=== PATIENT | female | born 1935 | race Caucasian/White ===

== ENCOUNTER 2017-07-16 15:55 | Emergency (ER) | payer MEDICARE, BC ==
[2017-07-16 16:19] VITALS: BP 133/63
[2017-07-16] MEDS ORDERED: HYDROmorphone 0.5 MG/0.5 ML Syringe IM ONE (17:06)
--- NOTE | 2017-07-16 17:07 | EDM.PDOC ---
ED HPI GENERAL MEDICAL PROBLEM - General Chief Complaint: Back Pain or Injury Stated Complaint: PCP CONCERNED ABOUT BLOOD CLOT Time Seen by Provider: 07/16/17 16:51 Source of Information: Reports: Patient History Limitations: Reports: No Limitations - History of Present Illness INITIAL COMMENTS - FREE TEXT/NARRATIVE: Patient is a 81-year-old female who presents to the ED complaining of left sided thoracic back pain. Patient states approximately 2 weeks ago she was getting up out of her chair and while pushing up she coughed and felt a pop to this location. She was seen by Zoila Valdovinos her primary care provider in the clinic. She was instructed to continue taking hydrocodone and Tylenol as needed. Patient states she's had no significant improvements over the past 2 weeks. She stopped taking the Tylenol 4 days ago. She contacted her primary care provider and was instructed to come to the ED for further evaluation. Pain is localized with no radiation. Worsened with taking a deep breath, coughing, and palpation. Denies any chest pain, shortness of breath, nausea/vomiting, dizziness, pain/sensory changes to his lower extremities or abdominal pain. Back Pain Score (Numeric/FACES): 8 - Related Data Allergies Allergy/AdvReac Type Severity Reaction Status Date / Time Penicillins Allergy Rash Verified 07/16/17 17:04 Sulfa (Sulfonamide Allergy Rash Verified 07/16/17 17:04 Antibiotics) tetracycline [Tetracycline] Allergy Rash Verified 07/16/17 17:04 erythromycin base AdvReac Diarrhea Verified 07/16/17 17:04 [Erythromycin Base] Home Meds: Home Meds Amitriptyline [Elavil] 25 mg PO BEDTIME 11/29/13 [History] Levothyroxine 112 mcg PO DAILY 11/29/13 [History] Magnesium Oxide 250 mg PO DAILY 11/29/13 [History] Meloxicam [Mobic] 7.5 mg PO DAILY 11/29/13 [History] Pravastatin [Pravachol] 20 mg PO DAILY 11/29/13 [History] traMADol [Ultram] 50 mg PO TID 11/29/13 [History] Alendronate Sodium [Alendronate] 70 mg PO WEEKLY 07/21/16 [History] Furosemide [Furosemide] 20 mg PO WITHLUNCH 07/21/16 [History] Furosemide [Furosemide] 40 mg PO QAM 07/21/16 [History] Gabapentin [Gabapentin] 1,200 mg PO BID 07/21/16 [History] Lisinopril [Prinivil] 2.5 mg PO DAILY 07/21/16 [History] Lutein/Min/Vit C/Vit E Acetate [Ocuvite Lutein] 1 tab PO DAILY 07/21/16 [History ] Nitrofurantoin [place]/Macrocryst [Macrobid] 100 mg PO BID #9 cap 07/21/16 [Rx] Ubidecarenone [Co Q-10] 100 mg PO DAILY 07/21/16 [History] Acetaminophen/HYDROcodone [[place] 325-5 MG] 1 tab PO Q6H PRN #12 tablet 07/16/17 [Rx] Past Medical History HEENT History: Reports: Impaired Vision Cardiovascular History: Reports: Other (See Below) Other Cardiovascular History: swelling to bilateral legs - takes lasix Endocrine/Metabolic History: Reports: Diabetes, Type II - Past Surgical History HEENT Surgical History: Reports: Tonsillectomy Social & Family History - Family History Endocrine/Metabolic: Reports: Diabetes, type II Oncologic: Reports: Colon - Tobacco Use Smoking Status *Q: Former Smoker Years of Tobacco use: 15 Packs/Tins Daily: 0.5 - Caffeine Use Caffeine Use: Reports: Coffee - Recreational Drug Use Recreational Drug Use: No ED ROS GENERAL - Review of Systems Review Of Systems: ROS reveals no pertinent complaints other than HPI. ED EXAM, UPPER BACK/NECK PAIN - Physical Exam Exam: See Below Exam Limited By: No Limitations General Appearance: Alert, WD/WN, Mild Distress Ears Exam: Hearing Grossly Normal Nose Exam: Normal Inspection Throat/Mouth Exam: Normal Voice, No Airway Compromise Head Exam: Atraumatic, Normocephalic Neck Exam: Non-Tender, Full Range of Motion, Normal Alignment, Normal Inspection Cardiovascular/Respiratory: Regular Rate, Rhythm, No M/R/G, Normal Peripheral Pulses, No JVD, No Respiratory Distress GI/Abdominal: Normal Bowel Sounds, Soft, Non-Tender, No Organomegaly, No Distention Back Exam: Normal Inspection, Paraspinal Tenderness (Pain noted to the mid thoracic just left of the spine along where a rib head is potentially out of place. Pinpoint tenderness noted on palpation. No swelling, rash, bruising, bony abdomen abnormalities noted.), Other. No: Vertebral Tenderness Extremities: Normal Inspection, Normal Range of Motion, Non-Tender, No Pedal Edema, Normal Capillary Refill Neurologic: director of engineering II-XII nml As Tested, No Motor/Sensory Deficits, Alert, Normal Mood/Affect, Oriented x 3 Psychiatric: Normal Affect, Normal Mood Skin Exam: Normal Color, Warm/Dry Course - Vital Signs Last Recorded V/S: Last Vital Signs Temp 98.6 F 07/16/17 16:15 Pulse 89 07/16/17 16:15 Resp 24 H 07/16/17 16:15 BP 133/63 07/16/17 16:15 Pulse Ox 92 L 07/16/17 16:15 - Orders/Labs/Meds Orders: Active Orders 24 hr Category Date Time Status Chest 1V Frontal [CR] Stat Exams 07/16/17 17:06 Taken Thoracic Spine 2V [CR] Stat Exams 07/16/17 17:06 Taken Meds: Medications Discontinued Medications Generic Name Dose Route Start Last Admin Trade Name Freq PRN Reason Stop Dose Admin Hydromorphone HCl 0.5 mg 07/16/17 17:06 07/16/17 17:52 Dilaudid IM 07/16/17 17:07 0.5 mg ONETIME ONE Administration - Re-Assessments/Exams Free Text/Narrative Re-Assessment/Exam: Ordered x-ray of the chest as well as thoracic spine. Ordered Dilaudid 0.5 mg IM. Reviewed cxr and x-ray of the thoracic spine with Dr. Carrero.Patient has pretty severe scoliosis with what appears to be a rib head out on the left side. 07/16/17 19:05 Reassessment, patient is feeling much better after the diluted therapy. Will discharge home with instructions as documented. Departure - Departure Time of Disposition: 19:19 Disposition: Home, Self-Care 01 Condition: Good Clinical Impression: Left-sided thoracic back pain Qualifiers: Chronicity: acute Qualified Code(s): M54.6 - Pain in thoracic spine - Discharge Information Prescriptions: Acetaminophen/HYDROcodone [[place] 325-5 MG] 1 tab PO Q6H PRN #12 tablet PRN Reason: Pain (Severe 7-10) Instructions: Thoracic Strain, [id number] Referrals: Zoila Valdovinos STUDY SPECIALIST [Primary Care Provider] - Forms: ED Department Discharge Additional Instructions: As discussed due to her severe scoliosis it appears that you have a rib head out on the left side of the upper back. This is adjacent to her ear pain is located. Treatment will be [place] one tab every 6 hours as needed for severe pain. Suggest utilizing ice and warm compresses to the affected area. Physical therapy will be ordered for outpatient treatment. Chiropractor may be able to help with her current discomfort. Follow-up with your primary care provider for future pain management and reevaluation. Return to the ED as needed for any new or worsening pain. No driving while taking the [place] and this evening since receiving a sedative medication. - My Orders Last 24 Hours: My Active Orders 07/16/17 17:06 Chest 1V Frontal [CR] Stat Thoracic Spine 2V [CR] Stat - Assessment/Plan Last 24 Hours: My Active Orders 07/16/17 17:06 Chest 1V Frontal [CR] Stat Thoracic Spine 2V [CR] Stat
--- NOTE | 2017-07-17 07:07 | CR ---
Thoracic spine: AP, lateral and swimmer's views of the thoracic spine were obtained. Mild anterior compression deformity is seen within the upper thoracic spine. This involves approximately the fifth rib vertebral body. Scattered disc space narrowing is seen. Scattered endplate osteophytes are seen. Scoliosis is present within the spine as well as upper thoracic kyphosis. Impression: 1. Compression deformity within the upper thoracic spine which is not seen on prior chest x-ray of 07/21/16 and has occurred in the interim. Age is otherwise nonspecific. 2. Degenerative change and scoliosis is seen. Diagnostic code #3
--- NOTE | 2017-07-17 07:07 | CR ---
Chest: Frontal view of the chest was obtained. Comparison: Prior chest x-ray of 05/06/16. Slight nodular density is seen within the left base. Lungs otherwise are clear. Heart size is normal. Tortuous thoracic aorta is seen. Scoliosis and degenerative change is seen within the spine. Impression: 1. Questionable nodule within the left lung base. Noncontrast chest CT recommended at sometime in the future to rule out nodule. 2. Other incidental findings. Nothing acute is appreciated. Diagnostic code #9
== END 2017-07-16 19:30 | disposition home or self-care (01) ==
LOC: JD.ED 15:55
DX: M54.6 Pain in thoracic spine (principal); E11.9 Type 2 diabetes mellitus without complications; Z88.0 Allergy status to penicillin; Z88.2 Allergy status to sulfonamides; Z88.1 Allergy status to other antibiotic agents; Z79.899 Other long term (current) drug therapy; Z87.891 Personal history of nicotine dependence
CPT/HCPCS: 71010; 72070; 96372; 99283; J1170

== ENCOUNTER 2019-05-23 12:08 | Emergency (ER) | payer MEDICARE, BC ==
[2019-05-23 12:26] VITALS: PULSE 104
[2019-05-23 12:32] VITALS: BP 108/68
[2019-05-23] MEDS ORDERED: Albuterol/Ipratropium 3.0-0.5 MG/3 ML Neb Soln NEB ONE (12:46)
--- NOTE | 2019-05-23 13:11 | EDM.PDOC ---
ED HPI GENERAL MEDICAL PROBLEM - General Chief Complaint: Respiratory Problem Stated Complaint: SOB Time Seen by Provider: 05/23/19 12:21 Source of Information: Reports: Patient History Limitations: Reports: No Limitations - History of Present Illness INITIAL COMMENTS - FREE TEXT/NARRATIVE: The patient presents with wheezing and shortness of breath. This has been going on for about 6 months. She did see an ENT doctor and he put her on an antibiotic. It did help some but she is wheezing again and has congestion She has lots of allergies. She has no chest pain, abdominal pain, nausea or vomiting. Onset: Gradual Duration: Week(s): Severity: Moderate Improves with: Reports: None Worsens with: Reports: None Associated Symptoms: Reports: Cough, Shortness of Breath. Denies: Chest Pain, Fever/Chills, Nausea/Vomiting - Related Data Allergies Allergy/AdvReac Type Severity Reaction Status Date / Time Penicillins Allergy Rash Verified 05/23/19 12:26 Sulfa (Sulfonamide Allergy Rash Verified 05/23/19 12:26 Antibiotics) tetracycline [Tetracycline] Allergy Rash Verified 05/23/19 12:26 erythromycin base AdvReac Diarrhea Verified 05/23/19 12:26 [Erythromycin Base] Home Meds: Home Meds Amitriptyline [Elavil] 25 mg PO BEDTIME 11/29/13 [History] Levothyroxine 112 mcg PO DAILY 11/29/13 [History] Magnesium Oxide 250 mg PO DAILY 11/29/13 [History] Meloxicam [Mobic] 7.5 mg PO DAILY 11/29/13 [History] Pravastatin [Pravachol] 20 mg PO DAILY 11/29/13 [History] traMADol [Ultram] 50 mg PO TID 11/29/13 [History] Alendronate Sodium [Alendronate] 70 mg PO WEEKLY 07/21/16 [History] Furosemide 20 mg PO WITHLUNCH 07/21/16 [History] Furosemide 40 mg PO QAM 07/21/16 [History] Gabapentin 1,200 mg PO BID 07/21/16 [History] Lisinopril [Prinivil] 2.5 mg PO DAILY 07/21/16 [History] Lutein/Min/Vit C/Vit E Acetate [Ocuvite Lutein] 1 tab PO DAILY 07/21/16 [History ] Nitrofurantoin [place]/Macrocryst [Macrobid] 100 mg PO BID #9 cap 07/21/16 [Rx] Ubidecarenone [Co Q-10] 100 mg PO DAILY 07/21/16 [History] Acetaminophen/HYDROcodone [[place] 325-5 MG] 1 tab PO Q6H PRN #12 tablet 07/16/17 [Rx] predniSONE [Prednisone] 20 mg PO DAILY #5 tablet 05/23/19 [Rx] Past Medical History HEENT History: Reports: Impaired Vision Cardiovascular History: Reports: Other (See Below) Other Cardiovascular History: swelling to bilateral legs - takes lasix Endocrine/Metabolic History: Reports: Diabetes, Type II - Past Surgical History HEENT Surgical History: Reports: Tonsillectomy Social & Family History - Family History Endocrine/Metabolic: Reports: Diabetes, type II Oncologic: Reports: Colon - Tobacco Use Smoking Status *Q: Former Smoker Used Tobacco, but Quit: Yes Month/Year Tobacco Last Used: 1989 - Caffeine Use Caffeine Use: Reports: Coffee ED ROS GENERAL - Review of Systems Review Of Systems: See Below Constitutional: Reports: No Symptoms HEENT: Reports: No Symptoms Respiratory: Reports: Shortness of Breath, Wheezing, Cough Cardiovascular: Reports: No Symptoms Endocrine: Reports: No Symptoms GI/Abdominal: Reports: No Symptoms : Reports: No Symptoms ED EXAM, GENERAL - Physical Exam Exam: See Below Exam Limited By: No Limitations General Appearance: Alert, No Apparent Distress Ears: Normal External Exam Nose: Normal Inspection Head: Atraumatic, Normocephalic Neck: Normal Inspection Respiratory/Chest: No Respiratory Distress, Wheezing Cardiovascular: Regular Rate, Rhythm, No Edema, No Murmur GI/Abdominal: Soft, Non-Tender, No Organomegaly, No Mass Back Exam: Normal Inspection Extremities: Normal Inspection Course - Vital Signs Last Recorded V/S: Last Vital Signs Temp 97.6 F 05/23/19 12:21 Pulse 104 H 05/23/19 12:21 Resp 22 H 05/23/19 12:21 BP 108/68 05/23/19 12:31 Pulse Ox 93 L 05/23/19 12:46 - Orders/Labs/Meds Orders: Active Orders 24 hr Category Date Time Status Cardiac Monitoring [RC] . DIRECTED Care 05/23/19 12:46 Active RT Aerosol Therapy [RC] ASDIRECTED Care 05/23/19 12:46 Active RT Post Treatment Assessment [RC] Click to Edit Care 05/23/19 15:18 Ordered RT Pre-Treatment Assessment [RC] Click to Edit Care 05/23/19 15:18 Ordered Albuterol [Proventil HFA] Med 05/23/19 15:18 Once See Dose Instructions INH ONETIME ONE predniSONE Med 05/23/19 15:18 Once 20 mg PO ONETIME ONE Labs: Laboratory Tests 05/23/19 05/23/19 Range/Units 13:17 13:17 WBC 9.03 (3.98-10.04) K/mm3 RBC 4.22 (3.98-5.22) M/mm3 Hgb 13.3 (11.2-15.7) gm/dl Hct 40.5 (34.1-44.9) % MCV 96.0 H (79.4-94.8) fl MCH 31.5 (25.6-32.2) pg MCHC 32.8 (32.2-35.5) g/dl RDW Std Deviation 43.1 (36.4-46.3) fL Plt Count 330 (182-369) K/mm3 MPV 8.7 L (9.4-12.3) fl Neut % (Auto) 51.3 (34.0-71.1) % Lymph % (Auto) 31.5 (19.3-51.7) % [place] % (Auto) 10.9 (4.7-12.5) % Eos % (Auto) 5.3 (0.7-5.8) Baso % (Auto) 0.7 (0.1-1.2) % Neut # (Auto) 4.64 (1.56-6.13) K/mm3 Lymph # (Auto) 2.84 (1.18-3.74) K/mm3 [place] # (Auto) 0.98 H (0.24-0.36) K/mm3 Eos # (Auto) 0.48 H (0.04-0.36) K/mm3 Baso # (Auto) 0.06 (0.01-0.08) K/mm3 Sodium 136 (136-145) mEq/L Potassium 3.9 (3.5-5.1) mEq/L Chloride 98 (98-107) mEq/L Carbon Dioxide 28 (21-32) mEq/L Anion Gap 13.9 (5-15) BUN 12 (7-18) mg/dL Creatinine 1.0 (0.55-1.02) mg/dL Est Cr Clr Drug Dosing 32.73 mL/min Estimated GFR (MDRD) 53 (>60) mL/min BUN/Creatinine Ratio 12.0 L (14-18) Glucose 110 (83-115) mg/dL Calcium 9.0 (8.5-10.1) mg/dL Total Bilirubin 0.2 (0.2-1.0) mg/dL AST 19 (15-37) U/L ALT 12 L (14-59) U/L Alkaline Phosphatase 76 (46-116) U/L Total Protein 7.2 (6.4-8.2) g/dl Albumin 3.6 (3.4-5.0) g/dl Globulin 3.6 gm/dL Albumin/Globulin Ratio 1.0 (1-2) Meds: Medications Discontinued Medications Generic Name Dose Route Start Last Admin Trade Name Freq PRN Reason Stop Dose Admin Albuterol/Ipratropium 3 ml 05/23/19 12:46 05/23/19 12:53 Duoneb 3.0-0.5 Mg/3 Ml NEB 05/23/19 12:47 3 ml ONETIME ONE Administration - Re-Assessments/Exams Free Text/Narrative Re-Assessment/Exam: 05/23/19 15:21 Her labs look good. Her CXR shows no infiltrates. Her breathing is better after the duoneb. I feel she may have some underlying ashtma or COPD. I will get her on a steroid for 5 days and an albuterol inhaler. Departure - Departure Time of Disposition: 15:25 Disposition: Home, Self-Care 01 Condition: Good Clinical Impression: Reactive airway disease Qualifiers: Asthma severity: mild intermittent Asthma complication type: with acute exacerbation Qualified Code(s): J45.21 - Mild intermittent asthma with (acute) exacerbation - Discharge Information *PRESCRIPTION DRUG MONITORING PROGRAM REVIEWED*: No *COPY OF PRESCRIPTION DRUG MONITORING REPORT IN PATIENT SE: No Prescriptions: predniSONE [Prednisone] 20 mg PO DAILY #5 tablet Referrals: Zoila Valdovinos SPECIALTY MOLDER [Primary Care Provider] - 2 Weeks Forms: ED Department Discharge Additional Instructions: Take the prednisone daily for 5 days. Use the inhaler 2 puffs every 6 hours as needed for wheezing or shortness of breath. Follow up with Zoila Valdovinos or one of her partners. Please return if you are worse. - My Orders Last 24 Hours: My Active Orders 05/23/19 12:46 Cardiac Monitoring [RC] . DIRECTED RT Aerosol Therapy [RC] ASDIRECTED 05/23/19 15:18 RT Post Treatment Assessment [RC] Click to Edit RT Pre-Treatment Assessment [RC] Click to Edit Albuterol [Proventil HFA] See Dose Instructions INH ONETIME ONE predniSONE 20 mg PO ONETIME ONE - Assessment/Plan Last 24 Hours: My Active Orders 05/23/19 12:46 Cardiac Monitoring [RC] . DIRECTED RT Aerosol Therapy [RC] ASDIRECTED 05/23/19 15:18 RT Post Treatment Assessment [RC] Click to Edit RT Pre-Treatment Assessment [RC] Click to Edit Albuterol [Proventil HFA] See Dose Instructions INH ONETIME ONE predniSONE 20 mg PO ONETIME ONE
--- NOTE | 2019-05-23 13:29 | CR ---
Chest: PA and lateral views of the chest were obtained. Comparison: Prior chest x-ray of 07/16/[address] of 07/24/17. Scoliosis is noted within the spine which is stable. Degenerative change is also scattered within the spine. Heart size is normal. Upper mediastinum is within normal limits. Lungs are clear with no acute parenchymal change. Impression: 1. Findings as noted above. Nothing acute is appreciated on 2 view chest x-ray. Diagnostic code #2
[2019-05-23] MEDS ORDERED: Albuterol 6.7 GM Inhaler INH ONE (15:18)
[2019-05-23] MEDS ORDERED: predniSONE 20 MG Tab PO ONE (15:18)
== END 2019-05-23 15:42 | disposition home or self-care (01) ==
LOC: JD.ED 12:08
DX: J45.21 Mild intermittent asthma with (acute) exacerbation (principal); E11.9 Type 2 diabetes mellitus without complications; Z88.0 Allergy status to penicillin; Z88.1 Allergy status to other antibiotic agents; Z88.2 Allergy status to sulfonamides; Z87.891 Personal history of nicotine dependence
CPT/HCPCS: 36415; 71046; 80053; 85025; 94640; 99285; A9270; 99283; J7620-GY

== ENCOUNTER 2020-11-25 13:45 | Emergency (ER) | payer MEDICARE, BC ==
[2020-11-25 14:06] VITALS: BP 92/60; PULSE 101
[2020-11-25] MEDS ORDERED: Sodium Chloride 0.9% 10 ML Syringe FLUSH PRN (14:19)
--- NOTE | 2020-11-25 14:22 | EDM.PDOC ---
ED HPI GENERAL MEDICAL PROBLEM - General Chief Complaint: Neuro Symptoms/Deficits Stated Complaint: DIORIENTATED Time Seen by Provider: 11/25/20 14:05 Source of Information: Reports: Patient, Family History Limitations: Reports: No Limitations - History of Present Illness INITIAL COMMENTS - FREE TEXT/NARRATIVE: The patient presents with her son and for confusion. The patient says she feels good and does not have any memory issues. He says that is not true. This morning they were praying and she could not turn to the right page. She usually watches [employer] and she has just been staring at [employer]. She was on steroids for her ear. That was stopped last week. This week she saw her case resource manager in [place] and her blood pressure was low in the 80s and she was supposed to see Zoila Valdovinos in [place] this week. She could not get in but Zoila did call her and wanted her to come in and have a CT scan done and other work up done. This has been going on for a few days. Onset: Gradual Duration: Day(s): Severity: Moderate Improves with: Reports: None Worsens with: Reports: None Associated Symptoms: Reports: No Other Symptoms - Related Data Allergies Allergy/AdvReac Type Severity Reaction Status Date / Time Penicillins Allergy Rash Verified 06/21/19 00:48 Sulfa (Sulfonamide Allergy Rash Verified 06/21/19 00:48 Antibiotics) tetracycline [Tetracycline] Allergy Rash Verified 06/21/19 00:48 erythromycin base AdvReac Diarrhea Verified 06/21/19 00:48 [Erythromycin Base] Home Meds: Home Meds Amitriptyline [Elavil] 12.5 mg PO BEDTIME 06/20/19 [History] Baclofen 10 mg PO TID PRN 06/20/19 [History] Calcium Carbonate [Calcium] 600 mg PO BID 06/20/19 [History] Cholecalciferol (Vitamin D3) [Vitamin D3] 1,000 unit PO DAILY 06/20/19 [History] Clotrimazole [Clotrimazole 1%] 1 applic TOP BID PRN 06/20/19 [History] Furosemide 40 mg PO DAILY 06/20/19 [History] Gabapentin [Neurontin] 600 mg PO BID 06/20/19 [History] Glucosam/Zhou-Col.Cplx/D3/C/Mn [Sbrmikmrpja-Junlbtispfv-Q5] 1 tab PO DAILY 06/20/19 [History] Levothyroxine 112 mcg PO ACBREAKFAST 06/20/19 [History] Meloxicam [Mobic] 7.5 mg PO BID 06/20/19 [History] Multivitamin with Minerals [Multivitamins with Minerals] 1 tab PO DAILY 06/20/19 [History] Pravastatin [Pravachol] 20 mg PO BEDTIME 06/20/19 [History] lisinopriL [Zestril] 2.5 mg PO DAILY 06/20/19 [History] metFORMIN [Glucophage] 500 mg PO BID 06/20/19 [History] traMADol [Ultram] 50 mg PO BEDTIME 06/20/19 [History] Albuterol [Proventil HFA] 2 puff INH Q4H PRN 06/21/19 [History] Docusate Sodium [Stool Softener] 50 mg PO DAILY 06/21/19 [History] Fluticasone Propionate [Flonase] 2 sprays NS DAILY 06/21/19 [History] Benzonatate [Tessalon Perle] 100 mg PO TID PRN #20 capsule 06/25/19 [Rx] Budesonide [Pulmicort] 0.5 mg IH BID #10 neb 06/25/19 [Rx] Dextromethorphan/guaiFENesin [Robitussin DM] 10 ml PO TID PRN #2 cup 06/25/19 [Rx] levalbuterol HCL [Xopenex] 1.25 mg NEB Q8HR #12 neb 06/25/19 [Rx] levoFLOXacin [Levaquin] 750 mg PO Q48H #1 tablet 06/25/19 [Rx] methylPREDNISolone [Medrol] 4 mg PO ASDIRECTED #1 dosepk 06/25/19 [Rx] Past Medical History HEENT History: Reports: Impaired Vision Other HEENT History: Glasses Cardiovascular History: Reports: High Cholesterol, Hypertension, Other (See Below) Other Cardiovascular History: swelling to bilateral legs - takes lasix Respiratory History: Reports: Bronchitis, Recurrent Other Respiratory History: It has been suggested to her in this last couple months that she should see a case resource manager to evaluate her for asthma or COPD but nothing has been set up yet. Musculoskeletal History: Reports: Arthritis, Back Pain, Chronic, Other (See Below) Other Musculoskeletal History: scoliosis Neurological History: Reports: None Psychiatric History: Reports: Depression Other Psychiatric History: in the past needed to take pill for depression but doesn't anymore. Endocrine/Metabolic History: Reports: Diabetes, Type II, Hypothyroidism, Obesity/BMI 30+ Hematologic History: Reports: None Dermatologic History: Reports: None - Infectious Disease History Infectious Disease History: Reports: None, Chicken Pox, Influenza, Measles - Past Surgical History HEENT Surgical History: Reports: Cataract Surgery, Tonsillectomy Musculoskeletal Surgical History: Reports: Knee Replacement Other Musculoskeletal Surgeries/Procedures:: bilateral Social & Family History - Family History Endocrine/Metabolic: Reports: Diabetes, type II Oncologic: Reports: Colon - Caffeine Use Caffeine Use: Reports: Coffee Other Caffeine Use: a couple times a day ED ROS GENERAL - Review of Systems Review Of Systems: See Below Constitutional: Reports: No Symptoms HEENT: Reports: No Symptoms Respiratory: Reports: No Symptoms Cardiovascular: Reports: No Symptoms Endocrine: Reports: No Symptoms GI/Abdominal: Reports: No Symptoms : Reports: No Symptoms Musculoskeletal: Reports: No Symptoms ED EXAM, NEURO - Physical Exam Exam: See Below Exam Limited By: No Limitations General Appearance: Alert, No Apparent Distress Ears: Normal External Exam Nose: Normal Inspection Head Exam: Atraumatic, Normocephalic Neck: Normal Inspection Respiratory/Chest: No Respiratory Distress, Lungs Clear, Normal Breath Sounds Cardiovascular: Regular Rate, Rhythm, No Edema, No Murmur GI/Abdominal: Soft, Non-Tender, No Organomegaly, No Mass Neurological: Alert, No Motor/Sensory Deficits, Oriented x 3 #1 Interpretation EKG Date: 11/25/20 Time: 14:32 Rhythm: Other (Sinus tachycardia) Rate (Beats/Min): 102 [place]: Normal P-Wave: Present QRS: Normal ST-T: Normal QT: Normal Course - Vital Signs Last Recorded V/S: Last Vital Signs Temp 98.2 F 11/25/20 14:03 Pulse 101 H 11/25/20 14:03 Resp 18 11/25/20 14:03 BP 92/60 11/25/20 14:03 Pulse Ox 93 L 11/25/20 14:03 - Orders/Labs/Meds Orders: Active Orders 24 hr Category Date Time Status Cardiac Monitoring [RC] . DIRECTED Care 11/25/20 14:19 Active EKG Documentation Completion [RC] STAT Care 11/25/20 14:20 Active Peripheral IV Care [RC] . DIRECTED Care 11/25/20 14:20 Active Ang Chest [CT] Stat Exams 11/25/20 15:56 Taken Chest 1V Frontal [CR] Stat Exams 11/25/20 14:20 Taken Head wo Cont [CT] Stat Exams 11/25/20 15:16 Taken Venous Doppler Lwr Ext Bi [US] Stat Exams 11/25/20 15:55 Taken Sodium Chloride 0.9% [Normal Saline] 1,000 ml Med 11/25/20 16:00 Active IV ASDIRECTED Sodium Chloride 0.9% [Saline Flush] Med 11/25/20 14:19 Active 10 ml FLUSH ASDIRECTED PRN Peripheral IV Insertion Adult [OM.PC] Stat Oth 11/25/20 14:19 Ordered Medication Orders Sodium Chloride (Normal Saline) 1,000 mls @ 150 mls/hr IV ASDIRECTED HILDA Last Admin: 11/25/20 16:18 Dose: 150 mls/hr Documented by: OLY Sodium Chloride (Sodium Chloride 0.9% 10 Ml Syringe) 10 ml FLUSH ASDIRECTED PRN PRN Reason: Keep Vein Open Last Admin: 11/25/20 16:18 Dose: 10 ml Documented by: OLY Labs: Laboratory Tests 11/25/20 11/25/20 11/25/20 Range/Units 14:50 14:50 14:50 WBC 5.92 (3.98-10.04) K/mm3 RBC 3.15 L (3.98-5.22) M/mm3 Hgb 10.1 L D (11.2-15.7) gm/dl Hct 31.4 L (34.1-44.9) % MCV 99.7 H (79.4-94.8) fl MCH 32.1 (25.6-32.2) pg MCHC 32.2 (32.2-35.5) g/dl RDW Std Deviation 48.9 H (36.4-46.3) fL Plt Count 306 (182-369) K/mm3 MPV 8.6 L (9.4-12.3) fl Neut % (Auto) 66.4 (34.0-71.1) % Lymph % (Auto) 23.3 (19.3-51.7) % [place] % (Auto) 9.5 (4.7-12.5) % Eos % (Auto) 0 L (0.7-5.8) Baso % (Auto) 0.5 (0.1-1.2) % Neut # (Auto) 3.93 (1.56-6.13) K/mm3 Lymph # (Auto) 1.38 (1.18-3.74) K/mm3 Avery # (Auto) 0.56 H (0.24-0.36) K/mm3 Eos # (Auto) 0.00 L (0.04-0.36) K/mm3 Baso # (Auto) 0.03 (0.01-0.08) K/mm3 D-Dimer, Quantitative 3.81 H (0.19-0.50) mg/L Sodium 141 (136-145) mEq/L Potassium 3.6 (3.5-5.1) mEq/L Chloride 100 (98-107) mEq/L Carbon Dioxide 30 (21-32) mEq/L Anion Gap 14.6 (5-15) BUN 17 (7-18) mg/dL Creatinine 1.3 H (0.55-1.02) mg/dL Est Cr Clr Drug Dosing TNP Estimated GFR (MDRD) 39 (>60) mL/min BUN/Creatinine Ratio 13.1 L (14-18) Glucose 93 (83-115) mg/dL Calcium 9.7 (8.5-10.1) mg/dL Magnesium 1.4 L (1.8-2.4) mg/dl Total Bilirubin 0.4 (0.2-1.0) mg/dL AST 16 (15-37) U/L ALT 22 (14-59) U/L Alkaline Phosphatase 54 (46-116) U/L Troponin I < 0.017 (0.00-0.056) ng/mL Total Protein 6.7 (6.4-8.2) g/dl Albumin 2.8 L (3.4-5.0) g/dl Globulin 3.9 gm/dL Albumin/Globulin Ratio 0.7 L (1-2) Urine Color (Yellow) Urine Appearance (Clear) Urine pH (5.0-8.0) Ur Specific [place] (1.005-1.030) Urine Protein (Negative) Urine Glucose (UA) (Negative) Urine Ketones (Negative) Urine Occult Blood (Negative) Urine Nitrite (Negative) Urine Bilirubin (Negative) Urine Urobilinogen (0.2-1.0) Ur Leukocyte Esterase (Negative) Urine RBC (0-5) /hpf Urine WBC (0-5) /hpf Ur Squamous Epith Cells (0-5) /hpf Urine Bacteria (FEW) /hpf Urine Mucus (FEW) /hpf 11/25/20 Range/Units 15:07 WBC (3.98-10.04) K/mm3 RBC (3.98-5.22) M/mm3 Hgb (11.2-15.7) gm/dl Hct (34.1-44.9) % MCV (79.4-94.8) fl MCH (25.6-32.2) pg MCHC (32.2-35.5) g/dl RDW Std Deviation (36.4-46.3) fL Plt Count (182-369) K/mm3 MPV (9.4-12.3) fl Neut % (Auto) (34.0-71.1) % Lymph % (Auto) (19.3-51.7) % [place] % (Auto) (4.7-12.5) % Eos % (Auto) (0.7-5.8) Baso % (Auto) (0.1-1.2) % Neut # (Auto) (1.56-6.13) K/mm3 Lymph # (Auto) (1.18-3.74) K/mm3 [place] # (Auto) (0.24-0.36) K/mm3 Eos # (Auto) (0.04-0.36) K/mm3 Baso # (Auto) (0.01-0.08) K/mm3 D-Dimer, Quantitative (0.19-0.50) mg/L Sodium (136-145) mEq/L Potassium (3.5-5.1) mEq/L Chloride (98-107) mEq/L Carbon Dioxide (21-32) mEq/L Anion Gap (5-15) BUN (7-18) mg/dL Creatinine (0.55-1.02) mg/dL Est Cr Clr Drug Dosing Estimated GFR (MDRD) (>60) mL/min BUN/Creatinine Ratio (14-18) Glucose (83-115) mg/dL Calcium (8.5-10.1) mg/dL Magnesium (1.8-2.4) mg/dl Total Bilirubin (0.2-1.0) mg/dL AST (15-37) U/L ALT (14-59) U/L Alkaline Phosphatase (46-116) U/L Troponin I (0.00-0.056) ng/mL Total Protein (6.4-8.2) g/dl Albumin (3.4-5.0) g/dl Globulin gm/dL Albumin/Globulin Ratio (1-2) Urine Color Yellow (Yellow) Urine Appearance Clear (Clear) Urine pH 6.5 (5.0-8.0) Ur Specific [place] 1.015 (1.005-1.030) Urine Protein Negative (Negative) Urine Glucose (UA) Negative (Negative) Urine Ketones Negative (Negative) Urine Occult Blood Negative (Negative) Urine Nitrite Negative (Negative) Urine Bilirubin Negative (Negative) Urine Urobilinogen 0.2 (0.2-1.0) Ur Leukocyte Esterase Negative (Negative) Urine RBC 0-5 (0-5) /hpf Urine WBC 0-5 (0-5) /hpf Ur Squamous Epith Cells 0-5 (0-5) /hpf Urine Bacteria Few (FEW) /hpf Urine Mucus Few (FEW) /hpf Meds: Medications Generic Name Dose Route Start Last Admin Trade Name Ajq PRN Reason Stop Dose Admin Sodium Chloride 1,000 mls @ 150 mls/hr 11/25/20 16:00 11/25/20 16:18 Normal Saline IV 150 mls/hr ASDIRECTED HILDA Administration Sodium Chloride 10 ml 11/25/20 14:19 11/25/20 16:18 Sodium Chloride 0.9% 10 Ml Syringe FLUSH 10 ml ASDIRECTED PRN Administration Keep Vein Open Discontinued Medications Generic Name Dose Route Start Last Admin Trade Name Freq PRN Reason Stop Dose Admin Sodium Chloride 100 mls @ 4 mls/sec 11/25/20 16:47 11/25/20 16:48 Normal Saline IV 11/25/20 16:48 4 mls/sec ONETIME ONE Administration Iopamidol 100 ml 11/25/20 16:47 11/25/20 16:48 Iopamidol 755 Mg/Ml 100 Ml Bottle IVPUSH 11/25/20 16:48 100 ml ONETIME ONE Administration - Re-Assessments/Exams Free Text/Narrative Re-Assessment/Exam: 11/25/20 15:23 I ordered an IV saline lock, EKG, CT of her head and labs. Her EKG shows a NSR with no acute changes. 11/25/20 17:[address] of her head shows no acute findings. Diffuse parenchymal atrophy and chronic ischemic changes. Her Hgb was low at 10.1. Her D-dimer was elevated at 3.81. I have ordered a CT angio of her chest and US of both legs. She says she has some pain in both legs. She felt it was a muscle strain after getting off of the stool a few times at her grandson's place. Her creatinine was 1.3. I ordered NS at 150ml/hr. Her magnesium was low at 1.4. Her troponin is negative. Her UA shows no UTI. The CT of her chest shows no central pulmonary embolism. Examination is slightly technically limited. Cholelithiasis. The US of both legs shows no evidence of DVT. Her work up looks good. She has a follow up appointment on Friday with Zoila. I do not think this is a stroke. Departure - Departure Time of Disposition: 17:30 Disposition: Home, Self-Care 01 Condition: Good Clinical Impression: Confusion - Discharge Information *PRESCRIPTION DRUG MONITORING PROGRAM REVIEWED*: Not Applicable *COPY OF PRESCRIPTION DRUG MONITORING REPORT IN PATIENT SE: Not Applicable Referrals: Zoila Valdovinos LAW WRITER [Primary Care Provider] - 2 Days Forms: ED Department Discharge Additional Instructions: Take your medications as prescribed. Follow up with Zoila on Friday. Please return if you are worse. Sepsis Event Note (ED) - Evaluation Sepsis Screening Result: No Definite Risk - Focused Exam Vital Signs: Vital Signs Temp Pulse Resp BP Pulse Ox 11/25/20 14:03 98.2 F 101 H 18 92/60 93 L - My Orders Last 24 Hours: My Active Orders 11/25/20 14:19 Cardiac Monitoring [RC] . DIRECTED Sodium Chloride 0.9% [Saline Flush] 10 ml FLUSH ASDIRECTED PRN Peripheral IV Insertion Adult [OM.PC] Stat 11/25/20 14:20 EKG Documentation Completion [RC] STAT Peripheral IV Care [RC] . DIRECTED Chest 1V Frontal [CR] Stat 11/25/20 15:16 Head wo Cont [CT] Stat 11/25/20 15:55 Venous Doppler Lwr Ext Bi [US] Stat 11/25/20 15:56 Ang Chest [CT] Stat 11/25/20 16:00 Sodium Chloride 0.9% [Normal Saline] 1,000 ml IV ASDIRECTED - Assessment/Plan Last 24 Hours: My Active Orders 11/25/20 14:19 Cardiac Monitoring [RC] . DIRECTED Sodium Chloride 0.9% [Saline Flush] 10 ml FLUSH ASDIRECTED PRN Peripheral IV Insertion Adult [OM.PC] Stat 11/25/20 14:20 EKG Documentation Completion [RC] STAT Peripheral IV Care [RC] . DIRECTED Chest 1V Frontal [CR] Stat 11/25/20 15:16 Head wo Cont [CT] Stat 11/25/20 15:55 Venous Doppler Lwr Ext Bi [US] Stat 11/25/20 15:56 Ang Chest [CT] Stat 11/25/20 16:00 Sodium Chloride 0.9% [Normal Saline] 1,000 ml IV ASDIRECTED
[2020-11-25] MEDS ORDERED: Sodium Chloride 0.9% 1,000 ML IV SCH (16:00)
[2020-11-25] MEDS ORDERED: Sodium Chloride 0.9% 100 ML IV ONE (16:47)
[2020-11-25] MEDS ORDERED: Iopamidol 755 Mg/ML 100 ML Bottle IVPUSH ONE (16:47)
--- NOTE | 2020-11-26 09:22 | CR ---
Chest: Portable view of the chest was obtained. Comparison: Prior chest x-ray of 08/05/19 is available. Heart size is normal. Upper mediastinum is within normal limits. Minimal scarring is noted within the lateral left costophrenic angle. Lungs otherwise are clear with no acute parenchymal change. Scoliosis and scattered degenerative change is noted within the spine. Impression: 1. Findings as noted above. 2. Nothing acute is appreciated on portable chest x-ray. Diagnostic code #2
--- NOTE | 2020-11-26 09:39 | US ---
Bilateral lower extremity deep venous ultrasound: Duplex and color Doppler evaluation was obtained of the right and left common femoral, proximal greater saphenous, superficial femoral, popliteal, posterior tibial and peroneal veins. Comparison: Prior left lower extremity deep venous ultrasound performed on 05/24/20. Findings: Normal phasic flow, augmentation and compression is seen. Impression: 1. No findings of deep venous thrombosis is seen within the right or left lower extremities. Diagnostic code #1 I agree with preliminary report from [facility], finalized on 11/25/20, 6:07 PM CDT, code #1
--- NOTE | 2020-11-26 09:44 | CT ---
Head CT Technique: Multiple axial sections through the brain were obtained. Intravenous contrast was not utilized. Reconstructed coronal and sagittal images were obtained. Comparison: No prior intracranial imaging is available. Findings: Ventricles along with basal cisterns and sulci over the convexities are mildly prominent. Diminished density is noted within the periventricular white matter most likely representing small vessel ischemic demyelination change. No other abnormal parenchymal densities are seen. No evidence of intracranial hemorrhage is seen. No midline shift or mass-effect is appreciated. Bone window settings were reviewed. Visualized mastoid sinuses and paranasal sinuses show nothing acute. Slight mucosal thickening is noted at the junction of the frontal and ethmoid sinuses. No acute calvarial finding is appreciated. Impression: 1. Minimal paranasal sinus findings believed to be incidental. 2. Senescent change as noted above. 3. No acute intracranial abnormality is appreciated. Diagnostic code #2 I agree with preliminary report from [facility], finalized on 11/25/20, 4:56 PM CDT, code #1
--- NOTE | 2020-11-26 15:27 | CT ---
CT chest Technique: Multiple axial sections through the chest were obtained. Intravenous contrast was utilized. Study was performed as a pulmonary angiogram protocol. Comparison: Prior chest CT study of 07/24/17. Findings: Thoracic aorta shows atherosclerotic calcification without aneurysm. Both pulmonary arteries are fairly well opacified. No filling defects are seen to indicate discrete pulmonary embolism. Very distal subsegmental pulmonary arteries are not optimally opacified. Small mediastinal lymph nodes are seen and believed to be within normal limits. No pericardial thickening is appreciated. Large gallstone is seen within the gallbladder. Partially visualized aneurysm within the abdominal aorta measuring 3.5 cm. Lung window settings were reviewed. Slight scarring is noted within both lung bases. No acute parenchymal change is appreciated. Bone window settings were reviewed which show diffuse degenerative change within the spine. There is an anterior wedge deformity within the spine which appears similar to prior exam. No acute osseous finding is appreciated. Impression: 1. No findings of pulmonary embolism. 2. Single large gallstone is visualized within the gallbladder. Partially visualized abdominal aortic aneurysm, abdominal aortic ultrasound is recommended to further evaluate. 3. Other findings as noted above which are believed to be chronic. Diagnostic code #2 I agree with preliminary report from [facility] finalized on 11/25/20, 6:06 PM CDT, code #1
== END 2020-11-25 17:49 | disposition home or self-care (01) ==
LOC: JD.ED 13:45
DX: R41.0 Disorientation, unspecified (principal); E78.00 Pure hypercholesterolemia, unspecified; I10 Essential (primary) hypertension; E03.9 Hypothyroidism, unspecified; E11.9 Type 2 diabetes mellitus without complications; E66.9 Obesity, unspecified; Z68.30 Body mass index [BMI] 30.0-30.9, adult; Z79.899 Other long term (current) drug therapy; Z88.0 Allergy status to penicillin; Z88.2 Allergy status to sulfonamides; Z88.1 Allergy status to other antibiotic agents
CPT/HCPCS: 36415; 70450; 71045; 71275; 80053; 81001; 83735; 84484; 85025; 85379; 93005; 93970; 99285; J7030; Q9967; 93010; 99284

== ENCOUNTER 2023-11-16 08:16 | Inpatient (IN) | payer MEDICARE, BC ==
[2023-11-16 08:30] LABS: BASOPHILS PERCENT AUTO 0.6 % (0.0-1.0); EOSINOPHILS ABSOLUTE AUTO 0.1 K/mm3 (0.0-0.4); EOSINOPHILS PERCENT AUTO 1.4 % (0.0-6.0); HEMATOCRIT 38.2 % (37.0-47.0); IMMATURE GRAN ABSOLUTE AUTO 0.02 K/mm3 (0.00-0.05); IMMATURE GRAN PERCENT AUTO 0.3 % (0.0-0.4); LYMPHOCYTES ABSOLUTE AUTO 1.2 K/mm3 (1.0-4.8); LYMPHOCYTES PERCENT AUTO 17.8 % (24.0-44.0); MEAN CORPUSCULAR HEMOGLOBIN 34.1 pg (28.0-32.0); MEAN CORPUSCULAR VOLUME 100.3 fl (83.0-99.0); MEAN PLATELET VOLUME 8.5 fl (9.4-12.3); MONOCYTES ABSOLUTE AUTO 0.6 K/mm3 (0.0-0.8); NEUTROPHILS PERCENT AUTO 70.9 % (41.0-71.0); PLATELET COUNT,PLT 227 K/mm3 (150-400); RED BLOOD CELL COUNT 3.81 M/mm3 (4.10-5.30); WHITE BLOOD CELL COUNT,WBC 6.98 K/mm3 (3.9-11.3)
[2023-11-16 08:51] LABS: A/G RATIO 1.1 (1-2); ALANINE AMINOTRANSFERASE,ALT 32 U/L (14-59); ALKALINE PHOSPHATASE 74 U/L (46-116); ANION GAP 13.3 (5-15); ASPARTATE AMNIOTRANSFERASE,AST 21 U/L (15-37); BILIRUBIN TOTAL 0.7 mg/dL (0.2-1.0); BLOOD UREA NITROGEN,BUN 10 mg/dL (7-18); BUN/CREATININE RATIO 12.5 (14-18); CALCIUM 9.4 mg/dL (8.5-10.1); CARBON DIOXIDE,CO2 29 mEq/L (21-32); CHLORIDE,CL 101 mEq/L (98-107); CREATININE 0.8 mg/dL (0.55-1.02); ESTIMATED GFR 72 mL/min (>60); GLUCOSE RANDOM 132 mg/dL (70-99); POTASSIUM,K 4.3 mEq/L (3.5-5.1); PROTEIN TOTAL,TP 7.6 g/dl (6.4-8.2); SODIUM,NA 139 mEq/L (136-145); TROPONIN I HIGH SENSITIVITY 13 pg/mL (<=51)
[2023-11-16 08:54] LABS: LACTIC ACID 1.4 mmol/L (0.4-2.0)
[2023-11-16] MEDS: Sodium Chloride 0.9% 1,000 ML IV ONE (09:02)
[2023-11-16] MEDS: Sodium Chloride 0.9% 10 ML Syringe FLUSH PRN (09:03)
[2023-11-16 10:23] LABS: APPEARANCE,URINE CLEAR (Clear); BILIRUBIN,URINE NEGATIVE (Negative); COLOR,URINE LIGHT YELLOW (Yellow); GLUCOSE,URINE NEGATIVE (Negative); KETONES,URINE NEGATIVE (Negative); LEUKOCYTE ESTERASE,URINE NEGATIVE (Negative); NITRITE,URINE NEGATIVE (Negative); OCCULT BLOOD,URINE TRACE-INTACT (Negative); PROTEIN,URINE NEGATIVE (Negative); UROBILINOGEN,URINE 0.2 (0.2-1.0)
[2023-11-16 10:32] LABS: BARBITURATE SCREEN,URINE NEGATIVE (CUTOFF=200); BENZODIAZEPINES SCREEN,URINE NEGATIVE (CUTOFF=150); BUPRENORPHINE SCREEN,URINE NEGATIVE (CUTOFF=10); METHADONE SCREEN, URINE NEGATIVE (CUTOFF=200); METHAMPHETAMINES SCREEN, URINE NEGATIVE (CUTOFF=500); OXYCODONE SCREEN,URINE NEGATIVE (CUT0FF=100); THC SCREEN,URINE 20 NG/ML NEGATIVE (CUTOFF=50)
[2023-11-16 10:45] LABS: AMPHETAMINES SCREEN, URINE NEGATIVE (CUTOFF=500)
[2023-11-16 10:46] LABS: BACTERIA,URINE RARE /hpf (FEW); EPITHELIAL CELLS,URINE 0-5 /hpf (0-5); MUCUS,URINE RARE /hpf (FEW); RBC,URINE 0-5 /hpf (0-5); WBC,URINE 0-5 /hpf (0-5)
[2023-11-16 10:57] LABS: CORONAVIRUS COVID-19 NAA NEGATIVE (NEGATIVE); INFLUENZA A NAA NEGATIVE (NEGATIVE); RESPIRATORY SYNCYTIAL VIR NAA NEGATIVE (NEGATIVE)
[2023-11-16] MEDS: Haloperidol Lactate 5 MG/ML SDV IVPUSH ONE (13:23)
[2023-11-16] MEDS ORDERED: Albuterol 6.7 GM Inhaler INH PRN (16:17)
[2023-11-16 17:17] LABS: INR 0.98; PROTHROMBIN TIME 10.5 SECONDS (9.7-12.0)
[2023-11-16 17:19] LABS: PTT,PARTIAL THROMBOPLSTIN TIME 25.6 SECONDS (21.7-31.4)
[2023-11-16] MEDS: Pantoprazole 40 MG Vial IVPUSH ONE (18:07)
[2023-11-16] MEDS ORDERED: LORazepam 0.5 MG Tab PO PRN (18:17)
[2023-11-16 18:52] LABS: APPEARANCE,URINE CLEAR (Clear); BILIRUBIN,URINE NEGATIVE (Negative); COLOR,URINE LIGHT YELLOW (Yellow); GLUCOSE,URINE NEGATIVE (Negative); KETONES,URINE 1+ (Negative); LEUKOCYTE ESTERASE,URINE NEGATIVE (Negative); NITRITE,URINE NEGATIVE (Negative); OCCULT BLOOD,URINE NEGATIVE (Negative); PROTEIN,URINE NEGATIVE (Negative); UROBILINOGEN,URINE 0.2 (0.2-1.0)
[2023-11-16 19:00] LABS: BACTERIA,URINE FEW /hpf (FEW); MUCUS,URINE NOT SEEN /hpf (FEW); RBC,URINE 0-5 /hpf (0-5); SQUAMOUS EPITHELIAL CELLS,UR 0-5 /hpf (0-5); WBC,URINE 0-5 /hpf (0-5)
[2023-11-16] MEDS: Pantoprazole 40 MG Vial ONE (19:18)
[2023-11-16] MEDS: Pravastatin 20 MG Tab PO SCH (21:28)
[2023-11-17 06:32] LABS: ALBUMIN 3.4 g/dl (3.4-5.0); ANION GAP 12.6 (5-15); BILIRUBIN TOTAL 0.8 mg/dL (0.2-1.0); CALCIUM 9.1 mg/dL (8.5-10.1); CREATININE 0.6 mg/dL (0.55-1.02); EST CRCL DRUG DOSING (CG) 53.23 mL/min; MAGNESIUM 1.5 mg/dL (1.8-2.4); POTASSIUM,K 3.6 mEq/L (3.5-5.1); PROTEIN TOTAL,TP 6.8 g/dl (6.4-8.2)
[2023-11-17] MEDS: Levothyroxine 112 MCG Tab PO SCH (06:35)
[2023-11-17 06:41] LABS: BASOPHILS PERCENT AUTO 0.6 % (0.0-1.0); EOSINOPHILS ABSOLUTE AUTO 0.1 K/mm3 (0.0-0.4); HEMATOCRIT 37.3 % (37.0-47.0); HEMOGLOBIN 12.3 gm/dl (12.0-16.0); IMMATURE GRAN ABSOLUTE AUTO 0.03 K/mm3 (0.00-0.05); IMMATURE GRAN PERCENT AUTO 0.5 % (0.0-0.4); LYMPHOCYTES ABSOLUTE AUTO 1.4 K/mm3 (1.0-4.8); LYMPHOCYTES PERCENT AUTO 22.1 % (24.0-44.0); MEAN CORPUSCULAR HEMOGLOBIN 32.7 pg (28.0-32.0); MEAN CORPUSCULAR VOLUME 99.2 fl (83.0-99.0); MEAN PLATELET VOLUME 9.1 fl (9.4-12.3); MONOCYTES ABSOLUTE AUTO 0.8 K/mm3 (0.0-0.8); MONOCYTES PERCENT AUTO 11.5 % (0.0-8.0); NEUTROPHILS ABSOLUTE AUTO 4.1 K/mm3 (1.8-7.7); NEUTROPHILS PERCENT AUTO 63.3 % (41.0-71.0); PLATELET COUNT,PLT 247 K/mm3 (150-400); RED BLOOD CELL COUNT 3.76 M/mm3 (4.10-5.30); WHITE BLOOD CELL COUNT,WBC 6.53 K/mm3 (3.9-11.3)
[2023-11-17] MEDS ORDERED: Lisinopril 2.5 MG Tab PO SCH (09:00)
[2023-11-17] MEDS: Docusate Sodium 100 MG Cap PO SCH (09:11)
[2023-11-17] MEDS: Enoxaparin 40 MG/0.4 ML Syringe SUBCUT SCH (09:11)
[2023-11-18] MEDS: Furosemide 20 MG Tab PO SCH (08:05)
[2023-11-18] MEDS: Acetaminophen 325 MG Tab PO PRN (15:44)
[2023-11-18 20:42] LABS: INTACT PTH 32 pg/mL (15-65)
[2023-11-18] MEDS: Formoterol/Mometasone 200-5 MCG 8.8 GM Inhaler IH SCH (21:36)
[2023-11-19] MEDS: traMADol 50 MG Tab PO ONE (08:33)
[2023-11-19 08:36] VITALS: BP 114/48; PULSE 81
== END 2023-11-19 12:35 | DRG 92 ==
LOC: JD.ED 08:16 → JD.MS 16:03
PROVIDERS: ADMIT Pediatrics; ATTEND Internal Medicine
DX: G92.8 Other toxic encephalopathy (principal); F01.53 Vascular dementia, unspecified severity, with mood disturbance; I10 Essential (primary) hypertension; F02.83 Dementia in other diseases classified elsewhere, unspecified severity, with mood disturbance; E66.9 Obesity, unspecified; E03.9 Hypothyroidism, unspecified; E11.9 Type 2 diabetes mellitus without complications; G30.0 Alzheimer's disease with early onset; G89.29 Other chronic pain; E78.00 Pure hypercholesterolemia, unspecified; Z88.8 Allergy status to other drugs, medicaments and biological substances; H54.7 Unspecified visual loss; Z68.23 Body mass index [BMI] 23.0-23.9, adult; M19.90 Unspecified osteoarthritis, unspecified site; M54.50 Low back pain, unspecified; R62.7 Adult failure to thrive; G30.9 Alzheimer's disease, unspecified; Z88.2 Allergy status to sulfonamides; Z88.0 Allergy status to penicillin; Z88.1 Allergy status to other antibiotic agents; Z98.49 Cataract extraction status, unspecified eye; Z96.659 Presence of unspecified artificial knee joint; Z79.899 Other long term (current) drug therapy; Z98.890 Other specified postprocedural states
CPT/HCPCS: 0241U; 36415; 70450; 70450-26; 70551; 70551-26; 71045; 71045-26; 80053; 80306; 80307; 81001; 83605; 83690; 83735; 83880; 83970; 84443; 84484; 85025; 85610; 85730; 87040; 93005; 93010; 94640; 94760; 96361; 96374; 97110-GP; 97116-GP; 97161-GP; 99285; 99285-25; A9270-GY; C9113; J1630; J1650; J3490; J7030; U0002

== ENCOUNTER 2023-12-23 17:12 | Emergency (ER) | payer MEDICARE, BC ==
[2023-12-23] MEDS: Sodium Chloride 0.9% 10 ML Syringe FLUSH PRN (18:15)
[2023-12-23 18:30] LABS: BASOPHILS PERCENT AUTO 0.2 % (0.0-1.0); HEMATOCRIT 38.1 % (37.0-47.0); HEMOGLOBIN 12.7 gm/dl (12.0-16.0); IMMATURE GRAN ABSOLUTE AUTO 0.03 K/mm3 (0.00-0.05); IMMATURE GRAN PERCENT AUTO 0.3 % (0.0-0.4); LYMPHOCYTES ABSOLUTE AUTO 1.2 K/mm3 (1.0-4.8); LYMPHOCYTES PERCENT AUTO 11.7 % (24.0-44.0); MEAN CORPUSCULAR HGB CONC 33.3 g/dl (32.0-36.0); MEAN PLATELET VOLUME 9.5 fl (9.4-12.3); MONOCYTES ABSOLUTE AUTO 0.9 K/mm3 (0.0-0.8); MONOCYTES PERCENT AUTO 8.8 % (0.0-8.0); NEUTROPHILS ABSOLUTE AUTO 7.9 K/mm3 (1.8-7.7); PLATELET COUNT,PLT 244 K/mm3 (150-400); RED BLOOD CELL COUNT 3.97 M/mm3 (4.10-5.30); WHITE BLOOD CELL COUNT,WBC 9.94 K/mm3 (3.9-11.3)
[2023-12-23 18:54] LABS: A/G RATIO 0.8 (1-2); ALBUMIN 3.2 g/dl (3.4-5.0); ANION GAP 17.2 (5-15); BILIRUBIN TOTAL 0.5 mg/dL (0.2-1.0); BUN/CREATININE RATIO 17.5 (14-18); C-REACTIVE PROTEIN 5.91 mg/dL (<0.30); CALCIUM 8.9 mg/dL (8.5-10.1); CREATININE 0.8 mg/dL (0.55-1.02); EST CRCL DRUG DOSING (CG) 37.38 mL/min
[2023-12-23 18:59] LABS: POTASSIUM,K 4.2 mEq/L (3.5-5.1)
[2023-12-23 19:07] LABS: CORONAVIRUS COVID-19 NAA NEGATIVE (NEGATIVE); INFLUENZA A NAA NEGATIVE (NEGATIVE); RESPIRATORY SYNCYTIAL VIR NAA NEGATIVE (NEGATIVE)
[2023-12-23 19:58] LABS: APPEARANCE,URINE CLEAR (Clear); BILIRUBIN,URINE NEGATIVE (Negative); COLOR,URINE YELLOW (Yellow); GLUCOSE,URINE NEGATIVE (Negative); KETONES,URINE NEGATIVE (Negative); LEUKOCYTE ESTERASE,URINE NEGATIVE (Negative); NITRITE,URINE NEGATIVE (Negative); OCCULT BLOOD,URINE NEGATIVE (Negative); PROTEIN,URINE TRACE (Negative); UROBILINOGEN,URINE 0.2 (0.2-1.0)
[2023-12-23 20:32] LABS: RBC,URINE 0-5 /hpf (0-5); WBC,URINE 0-5 /hpf (0-5)
[2023-12-23 20:33] LABS: BACTERIA,URINE FEW /hpf (FEW); MUCUS,URINE FEW /hpf (FEW); SQUAMOUS EPITHELIAL CELLS,UR 0-5 /hpf (0-5)
[2023-12-23] MEDS: Azithromycin 250 MG Tab PO ONE (21:19)
[2023-12-23] MEDS: cefTRIAXone 2 GM in Sodium Chloride 0.9% 100 ML IV ONE (21:19)
[2023-12-23 22:35] VITALS: BP 128/72; PULSE 94
== END 2023-12-23 22:25 ==
LOC: JD.ED 17:12
DX: J18.9 Pneumonia, unspecified organism (principal); I10 Essential (primary) hypertension; E78.00 Pure hypercholesterolemia, unspecified; E11.9 Type 2 diabetes mellitus without complications; E03.9 Hypothyroidism, unspecified; E66.9 Obesity, unspecified; Z79.899 Other long term (current) drug therapy; Z88.0 Allergy status to penicillin; Z88.2 Allergy status to sulfonamides; Z88.1 Allergy status to other antibiotic agents; Z68.24 Body mass index [BMI] 24.0-24.9, adult
CPT/HCPCS: 0241U; 36415; 51701; 70450; 71046; 71250; 80053; 81001; 85025; 86140; 96365; 99285; A9270; C1758; J0696; J3490; 99284

== ENCOUNTER 2025-04-27 16:45 | Emergency (ER) | payer MEDICARE, BC ==
[2025-04-27 17:03] VITALS: BP 179/93; PULSE 72
[2025-04-27] MEDS ORDERED: Sodium Chloride 0.9% 10 ML Syringe FLUSH PRN (17:11)
[2025-04-27 17:51] LABS: BASOPHILS ABSOLUTE AUTO 0.0 K/mm3 (0.0-0.2); BASOPHILS PERCENT AUTO 0.4 % (0.0-1.0); EOSINOPHILS ABSOLUTE AUTO 0.1 K/mm3 (0.0-0.4); EOSINOPHILS PERCENT AUTO 1.2 % (0.0-6.0); IMMATURE GRAN ABSOLUTE AUTO 0.03 K/mm3 (0.00-0.05); IMMATURE GRAN PERCENT AUTO 0.3 % (0.0-0.4); LYMPHOCYTES ABSOLUTE AUTO 1.1 K/mm3 (1.0-4.8); LYMPHOCYTES PERCENT AUTO 10.7 % (24.0-44.0); MEAN PLATELET VOLUME 9.0 fl (9.4-12.3); MONOCYTES ABSOLUTE AUTO 0.7 K/mm3 (0.0-0.8); MONOCYTES PERCENT AUTO 6.4 % (0.0-8.0); NEUTROPHILS ABSOLUTE AUTO 8.4 K/mm3 (1.8-7.7); NEUTROPHILS PERCENT AUTO 81.0 % (41.0-71.0); NRBC ABSOLUTE 0.00 (0.00-0.02); NRBC PERCENT 0.0 % (0.0-0.2); PLATELET COUNT,PLT 191 K/mm3 (150-400); RED BLOOD CELL COUNT 3.85 M/mm3 (4.10-5.30); WHITE BLOOD CELL COUNT,WBC 10.39 K/mm3 (3.9-11.3)
[2025-04-27 18:13] LABS: A/G RATIO 1.3 (1-2); ALANINE AMINOTRANSFERASE,ALT 14.0 U/L (14-59); ASPARTATE AMNIOTRANSFERASE,AST 18.0 U/L (15-37); BILIRUBIN TOTAL 0.4 mg/dL (0.2-1.0); BLOOD UREA NITROGEN,BUN 7.0 mg/dL (7-18); CARBON DIOXIDE,CO2 27.0 mEq/L (21-32); CHLORIDE,CL 96.0 mEq/L (98-107); CREATININE 0.6 mg/dL (0.55-1.02); EST CRCL DRUG DOSING (CG) 51.26 mL/min; ESTIMATED GFR 86.0 mL/min (>60); GLUCOSE RANDOM 139.0 mg/dL (70-99); POTASSIUM,K 3.8 mEq/L (3.5-5.1); PROTEIN TOTAL,TP 7.0 g/dl (6.4-8.2); SODIUM,NA 132.0 mEq/L (136-145)
== END 2025-04-27 22:44 | disposition home or self-care (01) ==
LOC: JD.ED 16:45
DX: S42.402A Unspecified fracture of lower end of left humerus, initial encounter for closed fracture (principal); E11.65 Type 2 diabetes mellitus with hyperglycemia; E87.1 Hypo-osmolality and hyponatremia; I10 Essential (primary) hypertension; E78.00 Pure hypercholesterolemia, unspecified; E03.9 Hypothyroidism, unspecified; E66.9 Obesity, unspecified; Z68.26 Body mass index [BMI] 26.0-26.9, adult; Z88.0 Allergy status to penicillin; Z88.1 Allergy status to other antibiotic agents; Z88.8 Allergy status to other drugs, medicaments and biological substances; Z79.51 Long term (current) use of inhaled steroids; Z79.890 Hormone replacement therapy; Z79.899 Other long term (current) drug therapy; W01.0XXA Fall on same level from slipping, tripping and stumbling without subsequent striking against object, initial encounter
CPT/HCPCS: 36415; 70450; 70450-26; 72125; 72125-26; 73060-26-LT; 73060-LT; 73090-26-LT; 73090-LT; 80053; 85025; 96374; 99284; 99284-25; J1171

== ENCOUNTER 2025-06-12 04:47 | Emergency (ER) | payer MEDICARE, BC ==
[2025-06-12 07:04] VITALS: BP 117/74; PULSE 74
== END 2025-06-12 07:02 | disposition home or self-care (01) ==
LOC: JD.ED 04:47
DX: R21 Rash and other nonspecific skin eruption (principal); T36.8X5A Adverse effect of other systemic antibiotics, initial encounter; E78.00 Pure hypercholesterolemia, unspecified; I10 Essential (primary) hypertension; J45.909 Unspecified asthma, uncomplicated; E03.9 Hypothyroidism, unspecified; E66.9 Obesity, unspecified; Z88.0 Allergy status to penicillin; Z88.2 Allergy status to sulfonamides; Z88.1 Allergy status to other antibiotic agents; Z79.899 Other long term (current) drug therapy; Z79.51 Long term (current) use of inhaled steroids; Z79.52 Long term (current) use of systemic steroids; E11.9 Type 2 diabetes mellitus without complications; Z68.26 Body mass index [BMI] 26.0-26.9, adult
CPT/HCPCS: 99283; J7512